=== PATIENT | male | born 1955 | race Caucasian/White ===

== ENCOUNTER 2019-08-08 14:02 | Observation (INO) | payer OTHER, MEDICARE ==
[2019-08-08] MEDS ORDERED: Lactated Ringers 1,000 ML IV ONE (14:31)
[2019-08-08] MEDS ORDERED: LORazepam 2 MG/ML SDV IVPUSH ONE (14:32)
--- NOTE | 2019-08-08 14:33 | EDM.PDOC ---
ED HPI GENERAL MEDICAL PROBLEM - General Chief Complaint: Neuro Symptoms/Deficits Stated Complaint: POSSIBLE STROKE Time Seen by Provider: 08/08/19 14:08 Source of Information: Reports: Patient, EMS, Family History Limitations: Reports: No Limitations - History of Present Illness INITIAL COMMENTS - FREE TEXT/NARRATIVE: Please use ER note for admission H and P. EMS dispatched to [facility] with report of male sleeping, non- responsive with blood coming from mouth. Upon arrival he was more responsive, appears slightly confused, has no weakness, facial droop, slurred speech. Is not able to remember month. Can recall year, birthdate. Denies chest pain, sob , abdominal pain, no nausea, vomiting, no blood in urine, stools, no headache, neckache. There is residual dried saliva on right cheek that does have blood in it. He does have bite guadalupe on his tongue. He has no history of prior seizure activity. Denies any prior medical history but does get treatment at the [place] for hepatitis C. He is in week 07/30 of treat ment with Vosevi. This consists of 400 mg Sofosbuvir, 100 mg Velptasvir, 100 mg Voxilaprevir. Denies other medication use. Last known well per significant other was 1030 this morning. Onset: Sudden Duration: Improving Location: Reports: Generalized Associated Symptoms: Reports: Confusion - Related Data Allergies Allergy/AdvReac Type Severity Reaction Status Date / Time No Known Allergies Allergy Verified 08/08/19 15:34 Home Meds: Home Meds Sofosbuvir/Velpatas/Voxilaprev [Vosevi 400-100-100 mg Tablet] 1 each PO DAILY [History] ED ROS GENERAL - Review of Systems Review Of Systems: See Below Constitutional: Reports: No Symptoms HEENT: Reports: No Symptoms Respiratory: Reports: No Symptoms Cardiovascular: Reports: No Symptoms Endocrine: Reports: No Symptoms GI/Abdominal: Reports: No Symptoms : Reports: No Symptoms Musculoskeletal: Reports: No Symptoms Skin: Reports: No Symptoms Neurological: Reports: Confusion Psychiatric: Reports: Confusion Hematologic/Lymphatic: Reports: No Symptoms Immunologic: Reports: No Symptoms ED EXAM, NEURO - Physical Exam Exam: See Below Exam Limited By: Other (slight confusion, most HPI and ROS questions answered w/ o hesitation or difficulty) Eye Exam: Bilateral Eye: EOMI, Normal Inspection, PERRL Ears: Normal TMs Nose: Normal Inspection, Normal Mucosa, No Blood Throat/Mouth: Other (tongue does have areas of bite guadalupe) Head Exam: Atraumatic, Normocephalic Neck: Normal Inspection, Supple, Non-Tender, Full Range of Motion Respiratory/Chest: No Respiratory Distress, Lungs Clear, Normal Breath Sounds, No Accessory Muscle Use, Chest Non-Tender Cardiovascular: Normal Peripheral Pulses, Regular Rate, Rhythm, No Edema, No Gallop, No JVD, No Murmur, No Rub GI/Abdominal: Normal Bowel Sounds, Soft, Non-Tender, No Organomegaly, No Distention, No Abnormal Bruit, No Mass Neurological: Alert, Normal Mood/Affect, Normal Dorsiflexion, CN II-XII Intact, Normal Plantar Flexion, Normal Reflexes, No Motor/Sensory Deficits Back Exam: Normal Inspection, Full Range of Motion, NT Extremities: Normal Inspection, Normal Range of Motion, Non-Tender, No Pedal Edema, Normal Capillary Refill Psychiatric: Normal Affect, Normal Mood Skin Exam: Warm, Dry, Intact, Normal Color, No Rash Course - Orders/Labs/Meds Orders: Active Orders 24 hr Category Date Time Status Patient Status [ADT] Routine ADT 08/08/19 15:33 Ordered EKG 12 Lead [EKG Documentation Completion] [RC] STAT Care 08/08/19 14:10 Ordered CULTURE BLOOD [BC] Stat Lab 08/08/19 14:10 Ordered CULTURE BLOOD [BC] Stat Lab 08/08/19 14:10 Ordered DRUG SCREEN, URINE [URCHEM] Stat Lab 08/08/19 15:21 Ordered ETHANOL BLOOD MEDICAL [CHEM] Stat Lab 08/08/19 15:21 Ordered URINALYSIS W/MICROSCOPIC [UA W/MICROSCOPIC] [URIN] Stat Lab 08/08/19 14:09 Ordered Blood Culture x2 Reflex Set [OM.PC] Stat Oth 08/08/19 14:09 Ordered Labs: Laboratory Tests 08/08/19 08/08/19 08/08/19 Range/Units 14:11 14:11 14:11 WBC 11.9 H (4.0-10.0) x10^3/uL RBC 4.39 L (4.5-6.0) x10^6/uL Hgb 13.8 L (14.0-18.0) g/dL Hct 39.6 L (40.0-52.0) % MCV 90.2 (78.0-93.0) fL MCH 31.4 (26.0-32.0) pg MCHC 34.8 (32.0-36.0) g/dL RDW Coeff of Mitul 12.6 (10.0-15.0) % Plt Count 116 L (130-400) x10^3/uL Neut % (Auto) 75.1 (50.0-80.0) % Lymph % (Auto) 20.2 L (25.0-50.0) % Bourbon % (Auto) 4.1 (2.0-11.0) % Eos % (Auto) 0.4 (0.0-4.0) % Baso % (Auto) 0.2 (0.2-1.2) % Sodium 136 (136-145) mmol/L Potassium 3.8 (3.5-5.1) mmol/L Chloride 99 (98-107) mmol/L Carbon Dioxide 21 (21-32) mmol/L Anion Gap 19.8 (10-20) mmol/L BUN 6 L (7-18) mg/dL Creatinine 1.3 (0.70-1.30) mg/dL Est Cr Clr Drug Dosing TNP Estimated GFR (MDRD) 55 Glucose 134 H (74-106) mg/dL Lactic Acid 8.9 H* (0.4-2.0) mmol/L Calcium 10.6 H (8.5-10.1) mg/dL Corrected Calcium 10.76 H (8.5-10.1) mg/dL Magnesium 1.8 (1.8-2.4) mg/dL Total Bilirubin 0.7 (0.2-1.0) mg/dL AST 32 (15-37) U/L ALT 34 (16-63) U/L Alkaline Phosphatase 77 (46-116) U/L Creatine Kinase (39-308) U/L Troponin I < 0.017 (<=0.056) ng/mL C-Reactive Protein < 0.2 (<=0.9) mg/dL NT-Pro-B Natriuret Pep 215 H (<=125) pg/mL Total Protein 7.5 (6.4-8.2) g/dL Albumin 3.8 (3.4-5.0) g/dL Globulin 3.7 Albumin/Globulin Ratio 1.03 Amylase (25-115) U/L Lipase (73-393) U/L TSH, Ultra Sensitive 2.166 (0.358-3.74) uIU/mL 08/08/19 08/08/19 Range/Units 14:11 14:11 WBC (4.0-10.0) x10^3/uL RBC (4.5-6.0) x10^6/uL Hgb (14.0-18.0) g/dL Hct (40.0-52.0) % MCV (78.0-93.0) fL MCH (26.0-32.0) pg MCHC (32.0-36.0) g/dL RDW Coeff of Mitul (10.0-15.0) % Plt Count (130-400) x10^3/uL Neut % (Auto) (50.0-80.0) % Lymph % (Auto) (25.0-50.0) % Bourbon % (Auto) (2.0-11.0) % Eos % (Auto) (0.0-4.0) % Baso % (Auto) (0.2-1.2) % Sodium (136-145) mmol/L Potassium (3.5-5.1) mmol/L Chloride (98-107) mmol/L Carbon Dioxide (21-32) mmol/L Anion Gap (10-20) mmol/L BUN (7-18) mg/dL Creatinine (0.70-1.30) mg/dL Est Cr Clr Drug Dosing Estimated GFR (MDRD) Glucose (74-106) mg/dL Lactic Acid (0.4-2.0) mmol/L Calcium (8.5-10.1) mg/dL Corrected Calcium (8.5-10.1) mg/dL Magnesium (1.8-2.4) mg/dL Total Bilirubin (0.2-1.0) mg/dL AST (15-37) U/L ALT (16-63) U/L Alkaline Phosphatase (46-116) U/L Creatine Kinase 107 (39-308) U/L Troponin I (<=0.056) ng/mL C-Reactive Protein (<=0.9) mg/dL NT-Pro-B Natriuret Pep (<=125) pg/mL Total Protein (6.4-8.2) g/dL Albumin (3.4-5.0) g/dL Globulin Albumin/Globulin Ratio Amylase 103 (25-115) U/L Lipase 121 (73-393) U/L TSH, Ultra Sensitive (0.358-3.74) uIU/mL Meds: Medications Discontinued Medications Generic Name Dose Route Start Last Admin Trade Name Josh PRN Reason Stop Dose Admin Lactated Ringer's 1,000 mls @ 999 mls/hr 08/08/19 14:31 08/08/19 14:30 Ringers, Lactated IV 08/08/19 15:31 999 mls/hr ONETIME ONE Administration Lorazepam 1 mg 08/08/19 14:32 08/08/19 14:48 Ativan IVPUSH 08/08/19 14:33 1 mg STAT ONE Administration Departure - Departure Time of Disposition: 15:45 Disposition: Home, Self-Care 01 Condition: Good Clinical Impression: Seizure - Discharge Information *PRESCRIPTION DRUG MONITORING PROGRAM REVIEWED*: Not Applicable *COPY OF PRESCRIPTION DRUG MONITORING REPORT IN PATIENT NOLA: Not Applicable Referrals: PCP,Unknown [Primary Care Provider] - Forms: ED Department Discharge ED Communication - ED Communication Date/Time Date: 08/08/19 Time Called: 15:00 - Discussed Case With (1) Discussed Case With (1): Other (Dr. Sheppard at the [place] in [place] contacted. She did discuss case with neurology and recommended either to be discharged or observed. Neurology feels he does not need MRI or EEG at this time. Will admit observation. Due to distance was given ok by provider to present the option to patient. He did choose to stay here.) - Problem List & Annotations (1) Seizure SNOMED Code(s): 84685195 Code(s): R56.9 - UNSPECIFIED CONVULSIONS Status: Acute Current Visit: Yes - My Orders Last 24 Hours: My Active Orders 08/08/19 14:09 URINALYSIS W/MICROSCOPIC [UA W/MICROSCOPIC] [URIN] Stat Blood Culture x2 Reflex Set [OM.PC] Stat 08/08/19 14:10 EKG 12 Lead [EKG Documentation Completion] [RC] STAT CULTURE BLOOD [BC] Stat CULTURE BLOOD [BC] Stat 08/08/19 15:21 DRUG SCREEN, URINE [URCHEM] Stat ETHANOL BLOOD MEDICAL [CHEM] Stat 08/08/19 15:33 Patient Status [ADT] Routine - Assessment/Plan Last 24 Hours: My Active Orders 08/08/19 14:09 URINALYSIS W/MICROSCOPIC [UA W/MICROSCOPIC] [URIN] Stat Blood Culture x2 Reflex Set [OM.PC] Stat 08/08/19 14:10 EKG 12 Lead [EKG Documentation Completion] [RC] STAT CULTURE BLOOD [BC] Stat CULTURE BLOOD [BC] Stat 08/08/19 15:21 DRUG SCREEN, URINE [URCHEM] Stat ETHANOL BLOOD MEDICAL [CHEM] Stat 08/08/19 15:33 Patient Status [ADT] Routine Assessment:: Seizure Plan: Will admit observation. Patient stable in ED. Code level I. Will hydrate, monitor lactic acid. Will initiate transfer to [place] if seizure activity continues. Plan DC in AM if no further seizure activity. Neurology at [place] did not feel inpatient MRI or EEG needed. Schedule with PCP.
--- NOTE | 2019-08-08 14:49 | CT ---
[id number] CT/CT Head WO IV EXAM: CT Head WO IV CLINICAL DATA: STROKE,SEIZURE. COMPARISON STUDY: None FINDINGS: No intracranial hemorrhage, extra-axial fluid collection, mass, or acute ischemia. Generalized parenchymal atrophy with scattered areas of nonspecific white matter disease, commonly seen as sequela of chronic microvascular ischemia. Soft tissues are unremarkable. Mild mucosal thickening of the maxillary sinuses. The remaining paranasal sinuses and mastoid air cells are well aerated and clear. IMPRESSION: No acute intracranial findings. Quintin Geronimo DO 08/08/19 1448 Thank you for allowing us to participate in the care of your patient.
[2019-08-08 14:51] LABS: CHLORIDE,CL 99 mmol/L (98-107); SODIUM,NA 136 mmol/L (136-145)
[2019-08-08 14:53] LABS: ANION GAP 19.8 mmol/L (10-20)
[2019-08-08] MEDS ORDERED: Ondansetron 4 MG Tab.DIS PO PRN (16:01)
[2019-08-08] MEDS ORDERED: Ibuprofen 200 MG Tab PO PRN (16:01)
[2019-08-08] MEDS ORDERED: Acetaminophen 325 MG Tab PO PRN (16:01)
[2019-08-08] MEDS ORDERED: LORazepam 2 MG/ML SDV IVPUSH PRN (16:06)
[2019-08-08] MEDS: Lactated Ringers 1,000 ML IV SCH (16:46)
[2019-08-08] MEDS ORDERED: VOSEVI PO SCH (18:00)
[2019-08-08 20:41] LABS: BARBITURATE SCREEN,URINE NEGATIVE (NEGATIVE); BENZODIAZEPINES SCREEN,URINE NEGATIVE (NEGATIVE); EDDP,URINE SCREEN NEGATIVE (NEGATIVE); METHAMPHETAMINE SCREEN, URINE NEGATIVE (NEGATIVE); TCA SCREEN,URINE NEGATIVE (NEGATIVE); THC SCREEN,URINE 50 NG/ML NEGATIVE (NEGATIVE)
[2019-08-09] MEDS: Lactated Ringers 1,000 ML IV SCH (06:29)
[2019-08-09] MEDS ORDERED: Lactated Ringers 1,000 ML IV SCH (12:00)
--- NOTE | 2019-08-10 13:24 | PCM.DCSUM1 ---
Discharge Summary - Hospital Course Free Text/Narrative:: Pt. was admitted observation following presumed seizure activity. He was admitted by Sandeep De Leon. Overnight, he has had no further seizure activity. Pt. was noted to be in rhabdomyolysis post seizure. He was given normal saline overnight and at time of discharge, CPK was beginning to trend downward. He states that he is feeling much better. Denies any chest pain or shortness of breath. No headache. No numbness/tingling in face or extremities. No issues with speech or ambulation. Neurology was consulted from the [place]. Pt. has follow-up scheduled the day of discharge. Neurology advised not starting the patient on any seizure activity at this time, and they will arrange EEG, MRI and further testing. Diagnosis: Stroke: No - Discharge Data Discharge Date: 08/09/19 Discharge Disposition: Home, Self-Care 01 Condition: Good - Referral to Home Health Primary Care Physician: PCP Not In Area - Discharge Diagnosis/Problem(s) (1) Rhabdomyolysis SNOMED Code(s): 663530247 ICD Code: M62.82 - RHABDOMYOLYSIS Status: Acute (2) Seizure SNOMED Code(s): 61072208 ICD Code: R56.9 - UNSPECIFIED CONVULSIONS Status: Acute - Patient Instructions Diet: Usual Diet as Tolerated Activity: Rest and Relax Today Driving: Do Not Drive Driving, Other: do not drive until seen by neurology Showering/Bathing: May Shower Notify Provider of: Fever, Increased Pain, Swelling and Redness, Nausea and/or Vomiting - Discharge Plan *PRESCRIPTION DRUG MONITORING PROGRAM REVIEWED*: Not Applicable *COPY OF PRESCRIPTION DRUG MONITORING REPORT IN PATIENT NOLA: Not Applicable Home Medications: Home Meds Sofosbuvir/Velpatas/Voxilaprev [Vosevi 400-100-100 mg Tablet] 1 each PO DAILY [History] Forms: ED Department Discharge Referrals: PCP,Unknown [Ordering Only Provider] - - Discharge Summary/Plan Comment DC Time >30 min.: Yes - General Info Date of Service: 08/10/19 Functional Status: Reports: Pain Controlled - Review of Systems General: Reports: No Symptoms HEENT: Reports: No Symptoms Pulmonary: Reports: No Symptoms Cardiovascular: Reports: No Symptoms Gastrointestinal: Reports: No Symptoms Genitourinary: Reports: No Symptoms Musculoskeletal: Reports: No Symptoms Skin: Reports: No Symptoms Neurological: Reports: No Symptoms Psychiatric: Reports: No Symptoms - Patient Data Vitals - Most Recent: Last Vital Signs Temp 36.7 C 08/09/19 13:53 Pulse 51 L 08/09/19 13:53 Resp 15 08/09/19 13:53 BP 140/74 08/09/19 13:53 Pulse Ox 100 08/09/19 13:53 Weight - Most Recent: 66.678 kg Lab Results - Last 24 hrs: Laboratory Results - last 24 hr 08/09/19 Range/Units 13:02 Creatine Kinase 758 H* (39-308) U/L JENN Results - Last 24 hrs: Microbiology 08/08/19 14:38 Aerobic Blood Culture - Preliminary Blood - Venous - Lab Draw NO GROWTH AFTER 1 DAY Anaerobic Blood Culture - Preliminary NO GROWTH AFTER 1 DAY 08/08/19 14:11 Aerobic Blood Culture - Preliminary Blood - Venous NO GROWTH AFTER 1 DAY Anaerobic Blood Culture - Preliminary NO GROWTH AFTER 1 DAY Med Orders - Current: Current Medications Discontinued Medications Acetaminophen (Tylenol) 650 mg PO Q4H PRN PRN Reason: Pain (Mild 1-3)/fever Lactated Ringer's (Ringers, Lactated) 1,000 mls @ 999 mls/hr IV ONETIME ONE Stop: 08/08/19 15:31 Last Admin: 08/08/19 14:30 Dose: 999 mls/hr Lactated Ringer's (Ringers, Lactated) 1,000 mls @ 75 mls[facility] Last Admin: 08/09/19 06:29 Dose: 75 mls/hr Lactated Ringer's (Ringers, Lactated) 1,000 mls @ 500 mls[facility]hr [facility] Last Admin: 08/09/19 12:34 Dose: 500 mls/hr Ibuprofen (Motrin) 600 mg PO Q6H PRN PRN Reason: Pain (mild 1-3) Lorazepam (Ativan) 1 mg IVPUSH STAT ONE Stop: 08/08/19 14:33 Last Admin: 08/08/19 14:48 Dose: 1 mg Lorazepam (Ativan) 1 mg IVPUSH Q4H PRN PRN Reason: Seizures Vosevi Own Med 0 each PO DAILY@1800 DEVEN Last Admin: 08/08/19 18:02 Dose: 1 each Ondansetron HCl (Zofran Odt) 4 mg PO Q6H PRN PRN Reason: nausea, able to take PO - Exam General: Reports: Alert, Oriented HEENT: Reports: Pupils Equal, Pupils Reactive, EOMI, Mucous Membr. Moist/Hypericum Neck: Reports: Supple Lungs: Reports: Clear to Auscultation, Normal Respiratory Effort Cardiovascular: Reports: Regular Rate, Regular Rhythm GI/Abdominal Exam: Normal Bowel Sounds, Soft, Non-Tender, No Organomegaly, No Distention, No Mass (Male) Exam: Deferred Rectal (Males) Exam: Deferred Back Exam: Reports: Normal Inspection, Full Range of Motion Extremities: Normal Inspection, Normal Range of Motion, Non-Tender, No Pedal Edema, Normal Capillary Refill Skin: Reports: Warm, Dry, Intact Wound/Incisions: Reports: Healing Well Neurological: Reports: No New Focal Deficit Psy/Mental Status: Reports: Alert, Normal Affect, Normal Mood
== END 2019-08-09 15:20 | disposition home or self-care (01) ==
LOC: VM.ED 14:02 → VM.MS 15:33
PROVIDERS: ADMIT Nurse Practitioner Family; ATTEND Nurse Practitioner Family
DX: R56.9 Unspecified convulsions (principal); M62.82 Rhabdomyolysis
CPT/HCPCS: 36415; 70450; 80053; 80305; 80320; 81001; 82150; 82550; 83605; 83690; 83735; 83880; 84443; 84484; 85025; 86140; 87040; 93005; 96361; 96374; 99217; 99219; 99285; A9270; G0378; J2060; J7120; G0480